=== PATIENT | female | born 1970 | race Caucasian/White ===

== ENCOUNTER 2020-03-01 07:35 | Outpatient (CLI) | payer OTHER, SELFPAY ==
--- NOTE | ~2020-03-01 | MM_ITS ---
EXAMINATION: MM screening stacey BI w omid HISTORY: Screening mammogram TECHNIQUE: Craniocaudal and mediolateral oblique 3-D tomosynthesis images were obtained and synthetic 2-D images were generated. CAD analysis was submitted and interpreted. COMPARISON: No prior mammogram is available for comparison at this institution. BREAST PARENCHYMAL COMPOSITION: The breasts are heterogeneously dense, which may obscure small masses . FINDINGS: There is no evidence of suspicious mass, calcification, or architectural distortion to sugg est malignancy in either breast. IMPRESSION: 1. No mammographic evidence of malignancy. 2. Recommend routine screening mammography in one year. BI-RADS Category 1: Negative Reviewed, dictated and finalized at location A. ING SPECIALIST
== END 2020-03-01 07:36 | disposition home or self-care (01) ==
LOC: ANHIMG 07:42
PROVIDERS: PCP Internal Medicine; Visit Provider Nurse Practitioner
DX: Z12.31 Encounter for screening mammogram for malignant neoplasm of breast (principal)
CPT/HCPCS: 77063; 77067

== ENCOUNTER → 2021-05-05 09:07 | Outpatient (CLI) | payer OTHER, SELFPAY ==
--- NOTE | ~2021-05-05 | MM_ITS ---
EXAMINATION: MM screening stacey BI w omid HISTORY: Screening mammogram TECHNIQUE: Craniocaudal and mediolateral oblique 3-D tomosynthesis images were obtained and synthetic 2-D images were generated. Bilateral rotated lateral craniocaudal views CAD analysis was submitted a nd interpreted. COMPARISON: 03/01/2020 bilateral screening mammogram BREAST PARENCHYMAL COMPOSITION: The breasts are heterogeneously dense, which may obscure small masses . FINDINGS: There is no evidence of suspicious mass, calcification, or architectural distortion to sugg est malignancy in either breast. There has been no suspicious interval change. IMPRESSION: 1. No mammographic evidence of malignancy. 2. Recommend routine screening mammography in one year. BI-RADS Category 1: Negative Reviewed, dictated and finalized at location A. HOP CAPTAIN
== END ==
PROVIDERS: PCP Internal Medicine; Visit Provider Nurse Practitioner
DX: Z12.31 Encounter for screening mammogram for malignant neoplasm of breast (principal)
CPT/HCPCS: 77063; 77067

== ENCOUNTER 2022-06-18 07:16 | Outpatient (CLI) | payer OTHER, SELFPAY ==
--- NOTE | ~2022-06-18 | MM_ITS ---
EXAMINATION: MM screening stacey BI w omid HISTORY: Screening TECHNIQUE: Craniocaudal and mediolateral oblique 3-D tomosynthesis images were obtained and synthetic 2-D images were generated. CAD analysis was submitted and interpreted. COMPARISON: Comparison to multiple prior studies sequentially, with oldest reviewed study dated 02/12. BREAST PARENCHYMAL COMPOSITION: The breasts are heterogeneously dense, which may obscure small masses FINDINGS: There is no evidence of suspicious mass, calcification, or architectural distortion to sugg est malignancy in either breast. There has been no suspicious interval change. IMPRESSION: 1. No mammographic evidence of malignancy. 2. Recommend routine screening mammography in one year. BI-RADS Category 1: Negative Reviewed, dictated and finalized at location A.
== END 2022-06-18 07:17 | disposition home or self-care (01) ==
PROVIDERS: PCP Internal Medicine; Visit Provider Nurse Practitioner
DX: Z12.31 Encounter for screening mammogram for malignant neoplasm of breast (principal)
CPT/HCPCS: 77063; 77067

== ENCOUNTER 2023-09-30 07:27 | Outpatient (CLI) | payer BC, SELFPAY ==
--- NOTE | ~2023-09-30 | MM_ITS ---
EXAMINATION: MM screening stacey BI w omid HISTORY: Screening TECHNIQUE: Craniocaudal and mediolateral oblique 3-D tomosynthesis images were obtained and synthetic 2-D images were generated. CAD analysis was submitted and interpreted. COMPARISON: Comparison to multiple prior studies sequentially, with oldest reviewed study dated 02/12. BREAST PARENCHYMAL COMPOSITION: Dense: The breasts are extremely dense, which lowers the sensitivity of mammography. FINDINGS: There is no evidence of suspicious mass, calcification, or architectural distortion to sugg est malignancy in either breast. There has been no suspicious interval change. IMPRESSION: 1. No mammographic evidence of malignancy. 2. Recommend routine screening mammography in one year. BI-RADS Category 1: Negative Reviewed, dictated and finalized at location B.
== END 2023-09-30 07:28 | disposition home or self-care (01) ==
PROVIDERS: PCP Internal Medicine; Visit Provider Nurse Practitioner
DX: Z12.31 Encounter for screening mammogram for malignant neoplasm of breast (principal)
CPT/HCPCS: 77063; 77067

== ENCOUNTER 2024-12-26 12:33 | Outpatient (CLI) | payer BC, SELFPAY ==
--- NOTE | ~2024-12-26 | MM_ITS ---
EXAMINATION: MM screening stacey BI w omid HISTORY: Screening TECHNIQUE: Craniocaudal and mediolateral oblique 3-D tomosynthesis images were obtained and synthetic 2-D images were generated. CAD analysis was submitted and interpreted. COMPARISON: 06/18/2022 BREAST PARENCHYMAL COMPOSITION: The breasts are heterogeneously dense, which may obscure small masses. FINDINGS: There is no evidence of suspicious mass, calcification, or architectural distortion to suggest malignancy. There has been no suspicious interval change. IMPRESSION: 1. No mammographic evidence of malignancy. Recommend routine screening mammography in one year. BI-RADS Category 2: Benign finding(s) Reviewed, dictated and finalized at location Q. IMPRESSION: 1. No mammographic evidence of malignancy. Recommend routine screening mammogra phy in one year. BI-RADS Category 2: Benign finding(s)
--- OUTSIDE RECORDS SUMMARY | 2024-12-26 14:10 | XMS_ITS | Clinical Summary ---
Author Organization [facility] A Address [address] [place] [address] Care Team Providers Care Theater Projectionist Name Role Phone Matt Denson MD Primary Care Provi johnathan Allergies No known active allergies Medications cholecalciferol (cholecalciferol ) 1,000 unit tablet Take one by mouth one time per day 0 0 06/17/2009 Active norgestimate-eth inyl estradiol (SPRINTEC, 28,) 0.25-35 mg-mcg per tablet Take one by mouth one time per day 0 0 06/17/2009 Active multivitamin with minerals tablet Take 1 tablet by mouth daily. Active fexofenadine (CATHY) 180 mg tablet Take 180 mg by mouth daily Active Active Problems Problem Noted Date Diagnosed Date IGT (impaired glucose tolerance) 11/30/2018 Assessment & Plan (11/30/2018 9:00 AM CDT): a1vcc at 5.0 Scalp lesion 11/30/2018 Assessment & Plan (11/30/2018 9:06 AM CDT): 8mm nodular subqu lesion with little surface change consistent with syst in scalp been there with little apparent changes for a yr and ask to take pic with and freeze size so if detect much changes then can sjustify taking off. BMI 23.0-23.9, adult 11/29/2017 Assessment & Plan (11/30/2018 9:01 AM CDT): Nl and work to stay there Assessment & Plan (11/29/2017 9:08 AM CDT): Wt good and keep =here PE (physical exam), annual 11/29/2017 Assessment & Plan (11/30/2018 9:03 AM CDT): Healthy female . Walking multiple times a day. Screening cmp. Lipids good and needs stacey and will order up to date on pap. Colon at age 51. 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 Work to try to get a activty program in 3-4 =days a week. At ag 51 Colon unless family hx suggest earlier. Cont mvi but suggest adding 1000 vit d .. Screening urine only abn and appears from How you gave it. Will repeat. Screening thyroid nl And cmp Hyperlipidemia 10/20/2012 Overview (06/18/2016): HYPERLIPIDEMIA NEC/NOS Assessment & Plan (11/30/2018 9:00 AM CDT): ldl down to 122 and hdl 57 both good Assessment & Plan (11/29/2017 9:10 AM CDT): ldl at 141 and taret less then 130. targetless then 100 when higher risk. Work to keep here or lower. Trigs 97 and very nl and hdl at 56 the good chol is great. Resolved Problems Problem Noted Date Diagnosed Date Resolved Date IFG (impaired fasting glucose) 11/04/2018 11/30/2018 Abnormal urine findings 11/29/201711/13 Assessment & Plan (11/29/2017 9:14 AM CDT): Urine looks to be from vaginal contaminatoin and not from a dreal abn of it. Recheck and try to be careful with sample. On period but no blod cells in first urine so wanting to clear the epi's and bacteria. If gone then can ignor the likely rbc's seen. Immunizations Immunization Administration Dates Next Due Influenza, Quadrivalent, Spl it, Preservative Free, Intramuscular 12/26/2018 Influenza, Unspecified 11/30/2017(Deferred: Nati ent Refused) Tdap 11/02/2013 Surgical History Surgery Date Site/Laterality Comments TONSILLECTOMY 1996 Tonsillectomy Medical History Medical History Date Comments Hyperlipidemia Hyperlipidemia Family History Medical History Relation Name Comments Other Father 2 Alive and well; Cancer Maternal Grandfather 2 lung Cance r -; Hyperlipidemia Mother Hyperlipidemi a; Hypertension Mother Hypertension; Relation Name Status Comments Father 1 Alive Father 2 Maternal Grandfather 1 lung Alive Maternal Grandfather 2 lung Mother Social History Tobacco Use Types Packs/Day Years Used Date Smoking Tobacco: Never Alcohol Use Standard Drinks/Week Comments No 0 (1 standard drink = 0.6 oz pur e alcohol) PHQ-2 Answer Date Recorded PHQ-2 Score 0 11/03/2018 Comments No Sex and Gender Information Value Date Recorded Sex Assigned at Not on file 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 Gender Identity Not on file Sexual Orientation Not on file Obstetrics History Last Filed Vital Signs Vital Sign Reading Time Taken Comments Blood Pressure 114/66 11/29/2017 8:58 AM CDT Pulse 72 11/29/2017 8:58 AM CDT Temperature - - Respiratory Rate 18 11/29/2017 8:58 AM CDT Oxygen Saturation - - Inhaled Oxygen Concentration - - Weight 63 kg (139 lb) 11/30/2018 8:22 AM CDT Height 165.1 cm (5' 5) 11/30/2018 8:22 AM CDT Body Mass Index 23.13 11/30/2018 8:22 AM CDT Plan of Treatment [place] [id number] Care Teams Theater Projectionist Relationship Specialty Start Date End Date Matt Denson MD PCP - General 10/20/12
--- OUTSIDE RECORDS SUMMARY | 2024-12-26 14:10 | XMS_ITS | Clinical Summary ---
Author Organization [facility] [address] [place] [place] [address] Phone Care Team Providers Care Commission Broker Name Role Phone Matt Denson MD Primary Care Provider Unavaila ble Social History Tobacco Use Types Packs/Day Years Used Date Smoking Tobacco: Never Assessed Comments No Sex and Gender Information Value Date Recorded Sex Assigned at Not on file Legal Sex Female 8:57 PM CDT Gender Identity Not on file Sexual Orientation Not on file Plan of Treatment Health Maintenance Due Date Last Done Comments Hepatitis C Virus (HCV) Screening 1971 TdaP Immunization 1971 Hepatitis B Immunization (1 of 3 - 19+ 3-dose series) 05/19/1990 Pap Smear 05/19/1992 Cervical Cancer Screening (CCS) 05/19/2001 HPV/Cotest 05/19/2001 Cologuard 05/19/2016 Colonoscopy 05/19/2016 Colorectal Cancer Screening 05/19/2016 Immunochemical Fecal Occult Blood 05/19/2016 Pneumococcal Immunization (50+ years) (1 of 1 - PCV) 05/19/2021 Zoster Immunization (1 of 2) 05/19/2021 Influenza Immunization (#1) 2024 SARS-COV-2 Immunization ( season) 2024 02/28/2021, 06/29/2020, 06/08/2020 Respiratory Syncytial Virus (RSV) Immunization (Adult) (1 - 1-dose 75+ series) 05/19/2046 Discussion re Starting/Frequency of Mammograms Discontinued 12/26/2018, 05/14/2017, 02/24/2016, Additional history exists Mammogram Discontinued 12/26/2018, 04/2017, 01/24/2016 Human Papillomavirus (HPV) Immunization Aged Out No longer eligible based on patient's age to complete this topic Meningococcal Immunization (ACWY) Aged Out No longer eligible based on patient's age to complete this topic Rotavirus Immunization Aged Out No lo nger eligible based on patient's age to complete this topic Procedures Procedure Name Priority Date/Time Associated Diagnosis Comments KIP SCREENING BILATERAL DIGITAL W CAD W JUANJO Routine 12/26/2018 9:23 AM CDT Visit for screening mammogram from Last 3 Months or Most Recently Relevant to Health Maintenance Results * KIP SCREENING BILATERAL DIGITAL W CAD W JUANJO (12/26/2018 9:23 AM CDT) Anatomical Region Laterality Modality breast Bilateral Mammography 12/26/2018 9:02 AM CDT Narrative 12/26/2018 2:26 PM CDT - KIP SCREENING BILATERAL DIGITAL W CAD W JUANJO BILATERAL DIGITAL SCREENING MAMMOGRAM 3D/2D WITH CAD WITH MEDIOLATERAL OBLIQUE CRANIOCAUDAL: 12/26/2018 The study was acquired using digital technology and interpreted from soft copy. Current study was also evaluated with ICAD version 7.2. CLINICAL: Routine screening. Patient has no complaints. No personal history of cancer. No family history of breast cancer. COMPARISONS: Comparison is made to exams dated: 05/14/2017, 01/24/2016, and 12/18/2014 [facility]. BREAST TISSUE:The tissue of both breasts is heterogeneously dense. This may lower the sensitivity of mammography. FINDINGS: No significant masses, calcifications, or other findings are seen in either breast. There has been no significant interval change. IMPRESSION: BI-RAD 1 NEGATIVE There is no mammographic evidence of malignancy. A 1 year screening mammogram is recommended. The patient has been or will be contacted. The patient will be entered into a reminder system with a target due date of 1 year for her next screening exam. Electronically signed by: Yahir Gutiérrez M.D. bs/penadriano:12/26/2018 10:44:56 Traffic Law Attorney: Jen Red)(Shameka), [facility] letter sent: Normal Exam Reading location: MON BI-RADS: 1 Negative Procedure Note Yahir Gutiérrez MD - 12/26/2018 - KIP SCREENING BILATERAL DIGITAL W CAD W JUANJO BILATERAL DIGITAL SCREENING MAMMOGRAM 3D/2D WITH CAD WITH MEDIOLATERAL OBLIQUE CRANIOCAUDAL: 12/26/2018 The study was acquired using digital technology and interpreted from soft copy. Current study was also evaluated with ICAD version 7.2. CLINICAL: Routine screening. Patient has no complaints. No personal history of cancer. No family history of breast cancer. COMPARISONS: Comparison is made to exams dated: 05/14/2017, 01/24/2016, and 12/18/[address] [facility]. BREAST TISSUE:The tissue of both breasts is heterogeneously dense. This may lower the sensitivity of mammography. FINDINGS: No significant masses, calcifications, or other findings are seen in either breast. There has been no significant interval change. IMPRESSION: BI-RAD 1 NEGATIVE There is no mammographic evidence of malignancy. A 1 year screening mammogram is recommended. The patient has been or will be contacted. The patient will be entered into a reminder system with a target due date of 1 year for her next screening exam. Electronically signed by: Yahir mariee/richard:12/26/2018 10:44:56 Traffic Law Attorney: Jen Pickens(R)(M), [facility] letter sent: Normal Exam Reading location: MON BI-RADS: 1 Negative Matt Denson MD IMG MAMMO ORDERABLES Final Resu lt from Last 3 Months or Most Recently Relevant to Health Maintenance Care Teams Commission Broker Relationship Specialty Start Date End Date Matt Denson MD [address] [place] [address] DR LEA [address] [place] [id number] PCP - General Internal Medicine 01/22/16
--- OUTSIDE RECORDS SUMMARY | 2024-12-26 14:10 | XMS_ITS | Clinical Summary ---
Author Organization [facility] Address [address] [place] [address] Care Team Providers Care Buildings Painter Name Role Phone Matt Denson MD Primary Care Provi [facility] Source Comments [employer] [facility],non-owned Affiliates and Associated Physician Practices is amultiple site organization consisting of ambulatory clinics and hospital sitesin [place], [place], [place] and [place]. This disclosure is being madepursuant to the Care Everywhere program and may not contain all information available regarding this patient. Last updated 17.[employer] [facility] Allergies No known active allergies Medications * Be aware that medications may not be up to date on this document. Alwaysverify current medications with the patient. norgestimate-et hinyl estradiol (SPRINTEC 28) 0.25-35 MG-MCG tablet Take 1 tablet by mouth once daily Active methylPREDNISol one (MEDROL DOSEPAK) 4 MG tablet Take by mouth as directed Use dose pack of 4mg tabs, start 24 mg/day, taper by 4mg/day over 6 days per pkg instructions. Take with food. 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 Gender Identity Not on file Sexual Orientation Not on file Last Filed Vital Signs Vital Sign Reading Time Taken Comments Blood Pressure 138/81 08/17/2019 5:34 PM CDT Pulse 87 08/17/2019 5:34 PM CDT Temperature 37.1 C (98.8 F) 08/17/2019 5:34 PM CDT Respiratory Rate 16 08/17/2019 5:34 PM CDT Oxygen Saturation 98% 08/17/2019 5:34 PM CDT Inhaled Oxygen Concentration - - Weight 65.8 kg (145 lb) 08/17/2019 5:34 PM CDT Height 160 cm (5' 3) 08/17/2019 5:34 PM CDT Body Mass Index 25.69 08/17/2019 5:34 PM CDT Plan of Treatment Health Maintenance Due Date Last Done Comments COLOGUARD (AGES 45-75) - COL ON CA SCREENING 1971 COLON MONITORING 1971 COLONOSCOPY - COLON CA SCREENING 1971 CT COLONOGRAPHY - COLON CA SCREENING 1971 Colorectal Cancer Screening 1971 FIT - COLON CA SCREENING 1971 FLEX SIG - COLON CA SCREENING 1971 LIPID TESTING 1971 HIV SCREENING 05/19/1986 HEPATITIS C SCREENING 05/15/1989 DTAP/TDAP/TD VACCINES (1 - Tdap) 05/19/1990 HEPATITIS B VACCINE (1 of 3 - 19+ 3-dose series) 05/19/1990 SCREENING FOR DIABETES 08/03/2019 MAMMOGRAM 12/26/2020 12/26/2018, 05/14/2017 PNEUMOCOCCAL VACCINE 50+ (1 of 1 - PCV) 05/19/2021 ZOSTER VACCINE (1 of 2) 05/19/2021 DEPRESSION SCREENING 03/15/2024 COVID-19 VACCINE (1 - 2023-2 5 season) 2024 INFLUENZA VACCINE (#1) 2024 12/26/2018 HIB VACCINE Aged Out No longer eligi ble based on patient's age to complete this topic HPV VACCINE Aged Out No longer eligi ble based on patient's age to complete this topic MENINGOCOCCAL (Group B) VACCINE SHARED DECISION-MAKING Aged Out No longer eligible based on patient's age to complete this topic MENINGOCOCCAL GROUPS A/C/Y/W VACCINE Aged Out No longer eligible b ased on patient's age to complete this topic Insurance [employer] Care Teams Buildings Painter Relationship Specialty Start Date End Date Matt Denson MD PCP - General Internal Medicine 03/25/17
== END 2024-12-26 12:34 | disposition home or self-care (01) ==
LOC: ANHFOHIMG 12:36
PROVIDERS: PCP Internal Medicine; Visit Provider Obstetrics & Gynecology Gynecology
DX: Z12.31 Encounter for screening mammogram for malignant neoplasm of breast (principal)
CPT/HCPCS: 77063; 77067